=== PATIENT | female | born 1975 | race African-American/Black ===

== ENCOUNTER 2016-06-04 10:27 | Emergency (ER) | payer SELFPAY ==
[~2016-06-04 10:27] MED LIST: 1-ME1LIQ OR; HYDR-2768 PO
[2016-06-04 10:38] VITALS: BP 163/114; PULSE 81; RESP 20; O2SAT 100
== END 2016-06-04 11:35 | disposition left against medical advice (07) ==
LOC: PHEFT 10:27
DX: S89.92XA Unspecified injury of left lower leg, initial encounter (principal); X58.XXXA Exposure to other specified factors, initial encounter
CPT/HCPCS: 99281

== ENCOUNTER 2016-07-17 00:01 | Emergency (ER) | payer SELFPAY ==
[~2016-07-17] VITALS: Ht 157.5 cm; Wt 103.0 kg
[2016-07-17 00:05] VITALS: BP 179/94; PULSE 88; RESP 16; TEMP 98.1; O2SAT 100
[2016-07-17] MEDS ORDERED: AMLO10TA2 PO (00:23)
== END 2016-07-17 01:54 | disposition left against medical advice (07) ==
LOC: NED 00:01
DX: Z03.89 Encounter for observation for other suspected diseases and conditions ruled out (principal)
CPT/HCPCS: 99281